=== PATIENT | male | born 1990 | race Caucasian/White ===

== ENCOUNTER 2017-04-01 16:29 | Emergency (ER) | payer OTHER ==
[~2017-04-01] VITALS: Ht 180.3 cm; Wt 87.7 kg
[2017-04-01 16:30] VITALS: BP 159/69
[2017-04-01] MEDS ORDERED: NAPROXEN 250 MG TAB PO ONE (17:00)
[2017-04-01] MEDS ORDERED: MOBI4TAB PO (17:28)
--- NOTE | 2017-04-02 08:10 | REP ---
REASON: Pain after trauma. PRIORS: None. COMPARISON: No priors. FINDINGS: No acute fracture or destructive osseous lesion. The mortise is intact. Signed by Benjamin Mariee DO 04/02/2017 09:21 A
--- NOTE | 2017-04-02 08:10 | REP ---
RIGHT FOOT, FOUR VIEWS: REASON: Pain after trauma. PRIORS: None. FINDINGS: The joint spaces are symmetric and relatively well maintained. There is no evidence of acute fracture or destructive osseous lesion. IMPRESSION: Negative. Signed by Benjamin Mariee DO 04/02/2017 09:21 A
== END 2017-04-01 17:42 | disposition home or self-care (01) ==
LOC: M ED 16:29
DX: S93.401A Sprain of unspecified ligament of right ankle, initial encounter (principal); S93.601A Unspecified sprain of right foot, initial encounter; X50.1XXA Overexertion from prolonged static or awkward postures, initial encounter; Y92.89 Other specified places as the place of occurrence of the external cause; Y93.67 Activity, basketball; Y99.9 Unspecified external cause status

== ENCOUNTER 2017-08-21 22:35 | Emergency (ER) | payer OTHER ==
[~2017-08-21] VITALS: Ht 182.9 cm; Wt 86.4 kg
[~2017-08-21 22:35] MED LIST: MOBI4TAB PO
[2017-08-21] MEDS ORDERED: PREPOI TOP (23:28)
[2017-08-21 23:34] VITALS: BP 144/81
== END 2017-08-22 00:25 | disposition home or self-care (01) ==
LOC: M ED 22:35
DX: K64.4 Residual hemorrhoidal skin tags (principal); F17.210 Nicotine dependence, cigarettes, uncomplicated

== ENCOUNTER 2018-09-17 11:02 | Emergency (ER) | payer OTHER ==
[~2018-09-17] VITALS: Ht 180.3 cm; Wt 89.1 kg
[~2018-09-17 11:02] MED LIST changes: +PREPOI TOP
[2018-09-17 11:14] VITALS: BP 145/68
== END 2018-09-17 12:16 | disposition home or self-care (01) ==
LOC: M ED 11:02 → EDBD 11:02 → M ED 12:16
DX: T33.822A Superficial frostbite of left foot, initial encounter (principal); T33.821A Superficial frostbite of right foot, initial encounter; X31.XXXA Exposure to excessive natural cold, initial encounter; F17.210 Nicotine dependence, cigarettes, uncomplicated

== ENCOUNTER 2019-06-17 10:51 | Emergency (ER) | payer OTHER ==
[~2019-06-17] VITALS: Ht 180.3 cm; Wt 97.0 kg
[2019-06-17] MEDS ORDERED: LEXA1TAB PO (11:30)
[2019-06-17] MEDS ORDERED: DOXYCYCLINE HYCLATE 100 MG TAB PO ONE (12:30)
[2019-06-17] MEDS ORDERED: LIDOCAINE 2% W/EPIN INJ 20ML **PRES FREE INJ ONE (12:30)
[2019-06-17] MEDS ORDERED: DOXY100C37 PO (12:35)
[2019-06-17 12:41] VITALS: BP 128/70
== END 2019-06-17 12:42 | disposition home or self-care (01) ==
LOC: M ED 10:51
DX: L72.3 Sebaceous cyst (principal); F17.200 Nicotine dependence, unspecified, uncomplicated; Z90.89 Acquired absence of other organs

== ENCOUNTER 2020-03-04 10:21 | Emergency (ER) | payer OTHER ==
[~2020-03-04] VITALS: Ht 177.8 cm; Wt 113.0 kg
[~2020-03-04 10:21] MED LIST changes: +DOXY100C37 PO; +LEXA1TAB PO
[2020-03-04] MEDS ORDERED: CYMB1CAP4 PO (10:29)
[2020-03-04] MEDS ORDERED: IBUPROFEN 600MG TAB PO ONE (11:00)
[2020-03-04 11:45] VITALS: BP 140/72
== END 2020-03-04 11:47 | disposition home or self-care (01) ==
LOC: M ED 10:21
DX: S06.0X0A Concussion without loss of consciousness, initial encounter (principal); V49.59XA Passenger injured in collision with other motor vehicles in traffic accident, initial encounter; Y92.410 Unspecified street and highway as the place of occurrence of the external cause; F33.9 Major depressive disorder, recurrent, unspecified; Z79.899 Other long term (current) drug therapy; F17.210 Nicotine dependence, cigarettes, uncomplicated

== ENCOUNTER 2020-11-22 06:13 | Emergency (ER) | payer OTHER ==
[~2020-11-22] VITALS: Ht 180.3 cm; Wt 136.0 kg
[~2020-11-22 06:13] MED LIST changes: +CYMB1CAP4 PO
[2020-11-22] MEDS ORDERED: IBUP-1022 PO (07:46)
[2020-11-22] MEDS ORDERED: ACET-897 PO (07:48)
[2020-11-22 07:56] VITALS: BP 157/95
== END 2020-11-22 08:07 | disposition home or self-care (01) ==
LOC: M ED 06:13
DX: G89.29 Other chronic pain (principal); R68.84 Jaw pain; Z79.899 Other long term (current) drug therapy; F17.210 Nicotine dependence, cigarettes, uncomplicated